=== PATIENT | female | born 1950 | race Caucasian/White ===

== ENCOUNTER 2018-05-18 18:16 | Emergency (ER) | payer MEDICARE ==
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
[2018-05-18 20:11] LABS: ABSOLUTE LYMPHOCYTES (AUTO) 1.8 10^3/uL (0.5-4.7); ABSOLUTE MONOCYTES (AUTO) 0.7 10^3/uL (0.1-1.4); ABSOLUTE NEUT (AUTO) 4.5 10^3/uL (1.7-8.2); BASOPHILS % (AUTO) 0.7 % (0-2); EOSINOPHILS % (AUTO) 0.4 % (0-6); HEMATOCRIT 38.5 % (36.0-47.0); LYMPHOCYTES % (AUTO) 25.6 % (13-45); MEAN CORPUSCULAR HEMOGLOBIN 31.9 pg (27.0-33.4); MEAN CORPUSCULAR HGB CONC 33.8 g/dL (32.0-36.0); MEAN CORPUSCULAR VOLUME 95 fl (80-97); MONOCYTES % (AUTO) 10.1 % (3-13); PLATELET COUNT 219 10^3/uL (150-450); RED BLOOD COUNT 4.07 10^6/uL (3.72-5.28); RED CELL DISTRIBUTION WIDTH 14.1 % (11.5-14.0); SEGMENTED NEUTROPHILS % (AUTO) 63.2 % (42-78); TOTAL CELLS COUNTED % (AUTO) 100 %; WHITE BLOOD COUNT 7.2 10^3/uL (4.0-10.5)
[2018-05-18 20:31] LABS: ANION GAP 11 (5-19); BLOOD UREA NITROGEN 7 mg/dL (7-20); CALCIUM 10.2 mg/dL (8.4-10.2); CARBON DIOXIDE 25 mmol/L (22-30); CHLORIDE 98 mmol/L (98-107); GLUCOSE 116 mg/dL (75-110); SODIUM 134.3 mmol/L (137-145)
[2018-05-18 20:41] LABS: POTASSIUM 2.8 mmol/L (3.6-5.0)
[2018-05-18 21:41] LABS: APPEARANCE,URINE SLIGHTLY-CLOUDY; BILIRUBIN,URINE NEGATIVE (NEGATIVE); COLOR,URINE ORANGE; GLUCOSE, URINE NEGATIVE (NEGATIVE); KETONES,URINE NEGATIVE (NEGATIVE)
[2018-05-18 21:42] LABS: LEUKOCYTE ESTERASE,URINE LARGE (NEGATIVE); NITRITE,URINE POSITIVE (NEGATIVE); PROTEIN,URINE 30 mg/dL (NEGATIVE); URINE SPECIFIC GRAVITY 1.007
--- NOTE | 2018-05-19 00:14 | ER Document Report ---
ED General - General Chief Complaint: Urinary Problem Stated Complaint: URINARY PROBLEM Time Seen by Provider: 05/18/18 18:53 Mode of Arrival: Wheelchair Notes: Patient is a 68-year-old female that presents to the emergency department for chief complaint of dysuria. Patient states that she has been having dysuria for several days, started last Friday, she was seen by her primary care physician, and started on Macrobid for UTI, and also given Pyridium. She was called by her primary and told to come to the hospital as the antibiotic she was given did not cover the bacteria growing in her urine. She is not sure of the bacteria, does not recall the type of bacteria she is grown in the past, she does have recurrent UTIs. She denies noting any fevers, chills, flank pain , nausea, vomiting or abdominal pain. She does admit to having decreased oral intake, and diarrhea since starting the antibiotics. Denies prior history of C. difficile. Past Medical History: Sciatica, osteoarthritis, frequent UTIs Past Surgical History: Cardiac ablation Social History: Denies tobacco, alcohol or drug use Family History: Reviewed and noncontributory for presenting illness Allergies: Reviewed, see documented allergy list. REVIEW OF SYSTEMS: Unless otherwise stated in this report the patient's positive and negative responses for review of systems for constitutional, eyes, ENT, cardiovascular, respiratory, gastrointestinal, neurological, genitourinary, musculoskeletal, and integumentary systems and related systems to the presenting problem are either as stated in the HPI or were not pertinent or were negative for the symptoms and/or complaints related to the presenting medical problem. PHYSICAL EXAMINATION: Vital signs reviewed, nursing noted reviewed. GENERAL: Well-appearing, well-nourished and in no acute distress. HEAD: Atraumatic, normocephalic. EYES: Eyes appear normal, extraocular movements intact, sclera anicteric, conjunctiva are normal. ENT: nares patent, oropharynx clear without exudates. Moist mucous membranes. NECK: Normal range of motion, supple without lymphadenopathy LUNGS: Breath sounds clear to auscultation bilaterally and equal. No wheezes rales or rhonchi. HEART: Regular rate and rhythm without murmurs ABDOMEN: Soft, nontender, normoactive bowel sounds. No rebound, guarding, or rigidity. No masses appreciated. EXTREMITIES: Nontender, good range of motion, no pitting or edema. NEUROLOGICAL: No focal neurological deficits. Moves all extremities spontaneously Motor and sensory grossly intact on exam. PSYCH: Normal mood, normal affect. SKIN: Warm, Dry, normal turgor, no rashes or lesions noted on exposed skin TRAVEL OUTSIDE OF THE [place] IN LAST 30 DAYS: No - Related Data Allergies/Adverse Reactions: No Known Allergies Allergy (Unverified 05/19/18 01:32) Past Medical History - General Information source: Patient - Social History Smoking Status: Never Smoker Chew tobacco use (# tins/day): No Frequency of alcohol use: None Drug Abuse: None Family History: Reviewed & Not Pertinent Patient has suicidal ideation: No Patient has homicidal ideation: No Renal/ Medical History: Denies: Hx Peritoneal Dialysis Physical Exam - Vital signs Vitals: Temp Pulse Resp BP Pulse Ox 98.4 F 98 16 129/87 H 96 05/18/18 18:33 05/18/18 18:33 05/18/18 18:33 05/18/18 18:33 05/18/18 18:33 Course - Re-evaluation Re-evalutation: Patient seen and examined vital signs reviewed. Laboratory data and imaging were ordered as appropriate for the patient's presenting symptoms and complaint, with consideration of any critical or life threatening conditions that may be associated with their obtained history and exam as noted above. Patient was treated with IV fluids, oral potassium 60 mEq, and IV Rocephin Results were reviewed when available and demonstrated hypokalemia, 2.8, without EKG changes, patient given replacement, this is secondary to the patient's diarrhea from her antibiotics, she is encouraged to increase oral potassium replacement, with different dietary changes, and given a brief prescription for oral potassium for 7 days. The patient was re-evaluated and was in stable condition, I did attempt to find records from her recent urinary culture, however [facility] did not have these records, and they were only done in the patient's outpatient clinic office which we cannot obtain these records at this time. Her urinalysis and urine culture were sent, I will discharge the patient home she is not septic at this time, on oral cefdinir for 7 days, and if discrepant from the patient's culture, will call in altered prescription, patient made aware of this. She is also made aware if her symptoms worsen to return to the emergency department. Evaluation was most consistent with urinary tract infection, hypokalemia Results were discussed with the patient at this point, after careful consideration I feel that that patient can be discharged from the emergency department, the patient was educated treatments and reasons to return to the emergency department based on their presumed diagnosis as noted above, they were advised to followup with a primary care physician in 2-3 days. Patient was agreeable to plan of care. *Note is created using voice recognition software and may contain spelling, syntax or grammatical errors. Laboratory 05/18/18 05/18/18 05/18/18 18:30 19:45 19:45 WBC 7.2 RBC 4.07 Hgb 13.0 Hct 38.5 MCV 95 MCH 31.9 MCHC 33.8 RDW 14.1 H Plt Count 219 Seg Neutrophils % 63.2 Lymphocytes % 25.6 Monocytes % 10.1 Eosinophils % 0.4 Basophils % 0.7 Absolute Neutrophils 4.5 Absolute Lymphocytes 1.8 Absolute Monocytes 0.7 Absolute Eosinophils 0.0 Absolute Basophils 0.0 Sodium 134.3 L Potassium 2.8 L* Chloride 98 Carbon Dioxide 25 Anion Gap 11 BUN 7 Creatinine 0.83 Est GFR ( Amer) > 60 Est GFR (Non-Af Amer) > 60 Glucose 116 H Calcium 10.2 Urine Color ORANGE Urine Appearance SLIGHTLY-CLOUDY Urine pH 7.0 Ur Specific [place] 1.007 Urine Protein 30 H Urine Glucose (UA) NEGATIVE Urine Ketones NEGATIVE Urine Blood SMALL H Urine Nitrite POSITIVE H Urine Bilirubin NEGATIVE Urine Urobilinogen 8.0 H Ur Leukocyte Esterase LARGE H Urine WBC (Auto) >182 Urine RBC (Auto) 3 Urine Bacteria (Auto) TRACE Urine WBC Clumps MOD Squamous Epi Cells Auto 3 Urine Ascorbic Acid NEGATIVE - Vital Signs Vital signs: Temp Pulse Resp BP Pulse Ox 98.3 F 79 15 134/77 H 95 05/19/18 03:29 05/19/18 03:29 05/19/18 03:29 05/19/18 03:29 05/19/18 03:29 - Laboratory Result Diagrams: 05/18/18 19:45 05/18/18 19:45 Laboratory results interpreted by me: 05/18/18 05/18/18 05/18/18 18:30 19:45 19:45 RDW 14.1 H Sodium 134.3 L Potassium 2.8 L* Glucose 116 H Urine Protein 30 H Urine Blood SMALL H Urine Nitrite POSITIVE H Urine Urobilinogen 8.0 H Ur Leukocyte Esterase LARGE H - EKG Interpretation by Me Additional EKG results interpreted by me: EKG demonstrates sinus rhythm with a ventricular rate of 75 bpm,, QTC 496 ms, baseline artifact noted, nonspecific T-wave inversion in lead III, in lead aVF, no ST changes noted. No prior for comparison. Critical Care Note - Critical Care Note Total time excluding time spent on procedures (mins): 38 Comments: Critical care time 38 minutes exclusive from separate billable procedures for a patient requiring complex medical decision making, and high potential for clinical deterioration. Patient with hypokalemia, need for obtaining outside records, and time spent doing so. time spent obtaining history from patient or surrogate, discussions with consultants, development of treatment plan with patient or surrogate, evaluation of patient's response to treatment, examination of patient, ordering and performing treatments and interventions, ordering and review of laboratory studies, re-evaluation of patient's condition , ordering and review of radiographic studies and review of old charts Discharge - Discharge Clinical Impression: Hypokalemia UTI (urinary tract infection) Qualifiers: Urinary tract infection type: site unspecified Hematuria presence: without hematuria Qualified Code(s): N39.0 - Urinary tract infection, site not specified Condition: Stable Disposition: HOME, SELF-CARE Instructions: Urinary Tract Infection ([facility]) Additional Instructions: Please return to the emergency department if you have any worsening, or concern of your symptoms. Please return to the emergency department if you develop chest pain, difficulty breathing, severe abdominal pain, or ongoing vomiting. Please follow-up with your primary care physician in 2-3 days and any other recommended physicians. If prescribed, take all medications as directed. If you have any questions or concerns do not hesitate to return the emergency department for evaluation. Please take all medications as prescribed, including the potassium pill once daily for 7 days. Prescriptions: Cefdinir 300 mg PO BID #14 capsule Potassium Chloride 20 meq PO DAILY #7 [email or web address] Referrals: JUSTINA FLORES MD [ACTIVE STAFF] - Follow up in 3-5 days (OR YOUR PRIMARY CARE PHYSICIAN )
[2018-05-19] MEDS ORDERED: POTASSIUM CHLORIDE 10 MEQ CAPSULE.ER PO ONE (00:15)
[2018-05-19] MEDS ORDERED: CEFTRIAXONE INJ 1000 MG VIAL IV ONE (00:16)
[2018-05-19] MEDS ORDERED: NORMAL SALINE 500 ML IV ONE (01:18)
[2018-05-19] MEDS ORDERED: ONDANSETRON HCL INJ/PF 4 MG/2 ML SDV IV ONE (01:26)
[2018-05-19 03:31] VITALS: BP 134/77
--- NOTE | 2018-05-19 15:32 | EKG REPORT ---
SEVERITY:- ABNORMAL ECG - SINUS RHYTHM RIGHT ATRIAL ABNORMALITY NONSPECIFIC T ABNORMALITIES, INFERIOR LEADS BORDERLINE PROLONGED QT INTERVAL : Confirmed by: Pati Cope MD 19-May-2018 15:32:19
== END 2018-05-19 03:29 | disposition home or self-care (01) ==
LOC: EDBD → ER 18:16
DX: N39.0 Urinary tract infection, site not specified (principal); E87.6 Hypokalemia
CPT/HCPCS: 93005; 36415; 87086; 85025; 87088; 80048; 81001; 87186; 93010; J0696; J2405; A9270